=== PATIENT | male | born 1980 | race Caucasian/White ===

== ENCOUNTER → 2020-11-18 | Outpatient (CLI) | payer OTHER ==
[~2020-11-18] MED LIST: COREG12.5 MG PO
== END ==
LOC: KOH-I 09:45
DX: M20.61 Acquired deformities of toe(s), unspecified, right foot (principal)
CPT/HCPCS: 73630

== ENCOUNTER → 2020-11-28 | Outpatient (CLI) | payer OTHER | LOC: EXRD 11-25 15:15 | DX: Z01.818 Encounter for other preprocedural examination (principal); I70.201 Unspecified atherosclerosis of native arteries of extremities, right leg | CPT/HCPCS: 93926 ==

== ENCOUNTER → 2020-12-06 | Outpatient (CLI) | payer OTHER ==
[2020-12-06 11:21] LABS: HEMOGLOBIN 12.6 gm/dl (14.0-17.5); RED BLOOD COUNT 4.59 M/UL (4.20-5.50); WHITE BLOOD COUNT 7.4 K/UL (4.5-11.0)
[2020-12-06 11:45] LABS: BUN/CREATININE RATIO 19 (0-10)
== END ==
LOC: OPSV2 12-04 11:30
PROVIDERS: Podiatrist Foot & Ankle Surgery
DX: T84.84XA Pain due to internal orthopedic prosthetic devices, implants and grafts, initial encounter (principal); M79.674 Pain in right toe(s)
CPT/HCPCS: 36415; 80048; 85027